=== PATIENT | female | born 1955 | race Caucasian/White ===

== ENCOUNTER → 2016-12-12 | Outpatient (CLI) | payer BC, OTHER ==
[2016-12-12 08:15] LABS: ANION GAP 9 (5-19); BLOOD UREA NITROGEN 15 mg/dL (7-20); CALCIUM 9.9 mg/dL (8.4-10.2); CARBON DIOXIDE 29 mmol/L (22-30); CHLORIDE 105 mmol/L (98-107); CHOLESTEROL 245.91 mg/dL (0-200); CREATININE RESULT 0.75 mg/dL (0.52-1.25); Direct HDL 86 mg/dL (>40); GLUCOSE 95 mg/dL (75-110); POTASSIUM 4.6 mmol/L (3.6-5.0); SODIUM 142.8 mmol/L (137-145); TRIGLYCERIDES 73 mg/dL (<150)
[2016-12-12 08:25] LABS: DIRECT LDL 139 mg/dL (<100)
== END ==
LOC: LAB 07:43
PROVIDERS: ATTEND Family Medicine
DX: E78.5 Hyperlipidemia, unspecified (principal); E03.9 Hypothyroidism, unspecified
CPT/HCPCS: 36415; 80048; 80061; 83036; 84443

== ENCOUNTER → 2018-03-13 | Outpatient (CLI) | payer BC ==
[2018-03-13 08:06] LABS: ANION GAP 10 (5-19); BLOOD UREA NITROGEN 17 mg/dL (7-20); CARBON DIOXIDE 31 mmol/L (22-30); CHLORIDE 104 mmol/L (98-107); CHOLESTEROL 244.32 mg/dL (0-200); GLUCOSE 106 mg/dL (75-110); POTASSIUM 5.4 mmol/L (3.6-5.0); SODIUM 145.2 mmol/L (137-145); TRIGLYCERIDES 83 mg/dL (<150)
[2018-03-13 08:17] LABS: DIRECT LDL 149 mg/dL (<100)
== END ==
LOC: LAB 07:35
PROVIDERS: ATTEND Family Medicine
DX: E78.5 Hyperlipidemia, unspecified (principal); E03.9 Hypothyroidism, unspecified
CPT/HCPCS: 36415; 80048; 80061; 83036; 84443

== ENCOUNTER → 2019-12-01 | Outpatient (CLI) | payer BC, OTHER ==
[2019-12-01 09:05] LABS: ANION GAP 7 (5-19); BLOOD UREA NITROGEN 17 mg/dL (7-20); CALCIUM 9.4 mg/dL (8.4-10.2); CARBON DIOXIDE 29 mmol/L (22-30); CHLORIDE 105 mmol/L (98-107); CHOLESTEROL 212.42 mg/dL (0-200); GLUCOSE 96 mg/dL (75-110); POTASSIUM 4.8 mmol/L (3.6-5.0); TRIGLYCERIDES 101 mg/dL (<150)
[2019-12-01 09:15] LABS: DIRECT LDL 118 mg/dL (<100)
== END ==
LOC: OD 08:06
PROVIDERS: ATTEND Family Medicine
DX: E78.5 Hyperlipidemia, unspecified (principal); E03.9 Hypothyroidism, unspecified
CPT/HCPCS: 36415; 80048; 80061; 83036; 84443